=== PATIENT | male | born 1935 | race Two or more races ===

== ENCOUNTER 2017-04-01 11:15 | Inpatient (IN) | payer OTHER ==
[~2017-04-01] VITALS: Ht 185.4 cm; Wt 124.3 kg
[~2017-04-01 11:15] MED LIST: AMITRIPTYLINE H50 MG PO; GABAPENTIN600 MG PO; [UNRECOGNIZED DRUG - OTHER]
== END 2017-04-05 09:39 | disposition left against medical advice (07) | DRG 193 ==
LOC: ER 11:15 → MEDI 22:21 → SEC-K 22:21 → MEDI 04-02 11:26
PROC: 3E0F7GC Introduction of Other Therapeutic Substance into Respiratory Tract, Via Natural or Artificial Opening (ICD-10-PCS; principal; 2017-04-01)
PROC: 4A033R1 Measurement of Arterial Saturation, Peripheral, Percutaneous Approach (ICD-10-PCS; 2017-04-01)
PROC: BB24ZZZ Computerized Tomography (CT Scan) of Bilateral Lungs (ICD-10-PCS; 2017-04-01)
PROC: B030ZZZ Magnetic Resonance Imaging (MRI) of Brain (ICD-10-PCS; 2017-04-01)
PROC: BW28ZZZ Computerized Tomography (CT Scan) of Head (ICD-10-PCS; 2017-04-01)
PROC: B54DZZZ Ultrasonography of Bilateral Lower Extremity Veins (ICD-10-PCS; 2017-04-02)
DX: J18.8 Other pneumonia, unspecified organism (principal); G93.49 Other encephalopathy; F33.2 Major depressive disorder, recurrent severe without psychotic features; B37.0 Candidal stomatitis; B37.49 Other urogenital candidiasis; R09.02 Hypoxemia; F10.20 Alcohol dependence, uncomplicated
CPT/HCPCS: 70544

== ENCOUNTER 2017-04-20 14:03 | Outpatient (CLI) | payer OTHER | END 2017-04-20 14:09 | disposition home or self-care (01) | LOC: RAD 14:03 | DX: J10.08 Influenza due to other identified influenza virus with other specified pneumonia (principal) ==

== ENCOUNTER 2017-05-19 16:06 | Outpatient (CLI) | payer OTHER | END 2017-05-19 16:12 | disposition home or self-care (01) | LOC: RAD 16:06 | DX: M54.5 Low back pain (principal) ==

== ENCOUNTER 2018-05-25 16:04 | Outpatient (CLI) | payer OTHER | END 2018-05-25 16:29 | disposition home or self-care (01) | LOC: RAD 16:04 | DX: R06.02 Shortness of breath (principal) ==

== ENCOUNTER 2019-10-25 08:59 | Inpatient (IN) | payer OTHER ==
[~2019-10-25] VITALS: Ht 182.9 cm; Wt 105.2 kg
[2019-10-25] MEDS ORDERED: TOPROL XL50 M1 PO (09:32)
[2019-10-25] MEDS ORDERED: RESTORIL30 M1 PO (09:32)
[2019-10-25] MEDS ORDERED: LEVOTHYROXINE25 MCG PO (09:32)
[2019-10-25] MEDS ORDERED: AMITRIPTYLINE H75 MG PO (09:33)
--- NOTE | 2019-10-25 09:33 | NUR ---
SE RECIBE PTE MASCULINO SOMNOLIENTO EN COMPANIA DE FAMILIAR Y PARAMEDICOS, LOS MISMOS REFIEREN CAIDA EN LA MADRUGADA DE ANNA MARIE Y FIEBRE. SE OSBERVA PTE DIAFORETICO. SE GABRIELA S/V Y SE REALIZA EKG; SE PRESENTA LEO A , LA CUAL REFIERE UBICAR PTE EN AREA DE CRITICO. SE OBSERVA ABRASION EN AREA DEL CODO L+.
--- NOTE | 2019-10-25 10:00 | NUR ---
PATIENT IS RECIEVED IN CRITICAL CARE AREA ALERTA AND ORIENTED X3. PATIENT IS SWEATY AND BREATHING HEAVILY. PATIENT SAYS HE'S NOT IN PAIN. IV LINE IS PLACED IN PATIENT'S RIGHT HAND AND BLOOD IS DRAWN FOR LABS. PATIENT IS CONECTED TO TELEMTRY AND OXIMETRY AND IS PLACED URIGHT FOR COMFORT. PATIENT IS DROWSY YET ALERT, AND SLEEPS THROUGH THE ENTIRE PROCESS.
--- NOTE | 2019-10-25 10:30 | NUR ---
IV FLUID 0.9% NACL IS PLACED ON PATIENT AT 75 ML/HR. PATIENT IS PLACED ON NASAL CANULA AND IS GIVEN A ICE PACK AND TYELNOL 1GM PO FOR HIS FEVER. PATIENT IS STILL SWEATING PROFUSELY AND DROWSY.
--- NOTE | 2019-10-25 11:00 | NUR ---
IVF IS RAISED TO FULL DRIP FOR ONLY 250 ML DUE TO DEHYDRATION. ANOTHER IV LINE IS PLACED ON PATIENT'S LEFT HAND AND IS LEFT WITH A SALINE LOCK. 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 PATIENT IS TAKEN BACK AND CONTINUES SLEEPING, ONLY WAKING UP WHEN CALLED BY NAME.
--- NOTE | 2019-10-25 13:55 | NUR ---
SECOND TROPININ LAB IS TAKEN FROM PATIENT'S RIGHT ARM AND SENT TO LABORATORY.
--- NOTE | 2019-10-25 15:59 | NUR ---
SE RECIBE PTE ALERTA Y ORIENTADO X3 EN CAMA CON BARANDAS ELEVADAS. SE RECIBE PTE CONECTADO A MONITOR CARDIACO Y OXIMETRIA. SE RECIBE PTE CANALIZADAO EN AMBAS BAYRON AREAS LIBRES DE EDESM Y DE ENROJECIMIENTO. SE RECIBE PTE CON .9NSS DRIP BAJANDO A 75ML/HR. SE LE NOTIFICA A LAS 15:45PM A DR.HERNANDEZ CODY S/V P150,B/P89/70,RR21,OYG548%. PTE EN ESPERA DE PROCESO DE ADMISION Y ORDENES DE ADMISION.
== END 2019-10-29 15:10 | disposition home or self-care (01) | DRG 195 ==
LOC: ER 08:59 → MEDJ 18:26 → SEC-K 18:26 → MEDJ 10-26 04:34 → SURH 10-28 19:21 → MEDJ 10-28 20:29
PROVIDERS: ADMIT Internal Medicine; ATTEND Internal Medicine
PROC: 4A12X4Z Monitoring of Cardiac Electrical Activity, External Approach (ICD-10-PCS; principal; 2019-10-26)
PROC: B24BZZZ Ultrasonography of Heart with Aorta (ICD-10-PCS; 2019-10-26)
PROC: BW28ZZZ Computerized Tomography (CT Scan) of Head (ICD-10-PCS; 2019-10-26)
PROC: 4A033R1 Measurement of Arterial Saturation, Peripheral, Percutaneous Approach (ICD-10-PCS; 2019-10-26)
PROC: 3E0F7SF Introduction of Other Gas into Respiratory Tract, Via Natural or Artificial Opening (ICD-10-PCS; 2019-10-26)
PROC: 8E0ZXY6 Isolation (ICD-10-PCS; 2019-10-26)
DX: J18.9 Pneumonia, unspecified organism (principal); I48.91 Unspecified atrial fibrillation; I10 Essential (primary) hypertension; I44.7 Left bundle-branch block, unspecified; E03.9 Hypothyroidism, unspecified; F10.10 Alcohol abuse, uncomplicated; Z03.818 Encounter for observation for suspected exposure to other biological agents ruled out; R09.02 Hypoxemia; F32.9 Major depressive disorder, single episode, unspecified; E11.65 Type 2 diabetes mellitus with hyperglycemia; S00.93XA Contusion of unspecified part of head, initial encounter; W18.30XA Fall on same level, unspecified, initial encounter; Y92.002 Bathroom of unspecified non-institutional (private) residence as the place of occurrence of the external cause

== ENCOUNTER 2019-11-18 11:19 | Outpatient (CLI) | payer OTHER ==
[~2019-11-18 11:19] MED LIST changes: +AMITRIPTYLINE H75 MG PO; +LEVOTHYROXINE25 MCG PO; +RESTORIL30 M1 PO; +TOPROL XL50 M1 PO
== END 2019-11-18 11:31 | disposition home or self-care (01) ==
LOC: MRI 11:19
PROVIDERS: ATTEND Psychiatry & Neurology Neurology
DX: F02.81 Dementia in other diseases classified elsewhere, unspecified severity, with behavioral disturbance (principal); G93.41 Metabolic encephalopathy
CPT/HCPCS: 70551

== ENCOUNTER 2020-11-30 11:33 | Emergency (ER) | payer OTHER ==
[~2020-11-30] VITALS: Ht 188 cm; Wt 96.2 kg
[2020-11-30] MEDS ORDERED: LORAZEPAM2 MG PO (12:02)
== END 2020-11-30 13:47 | disposition home or self-care (01) ==
LOC: ER 11:33
DX: S82.842A Displaced bimalleolar fracture of left lower leg, initial encounter for closed fracture (principal); W18.39XA Other fall on same level, initial encounter; Y93.89 Activity, other specified; Y92.098 Other place in other non-institutional residence as the place of occurrence of the external cause; Y99.8 Other external cause status

== ENCOUNTER 2020-12-03 19:00 | Inpatient (IN) | payer OTHER ==
[~2020-12-03] VITALS: Ht 177.8 cm; Wt 102.1 kg
[~2020-12-03 19:00] MED LIST changes: +LORAZEPAM2 MG PO
[2020-12-05] MEDS ORDERED: ELIQUIS2.5 MG PO (08:13)
[2020-12-05] MEDS ORDERED: DUI500 PO (08:13)
[2020-12-05] MEDS ORDERED: ULTRACET PO (08:13)
== END 2020-12-05 09:05 | disposition home or self-care (01) | DRG 493 ==
LOC: ER 19:00 → SURH 21:46
PROVIDERS: Orthopaedic Surgery; ADMIT Internal Medicine; ATTEND Internal Medicine
PROC: 0MQR0ZZ Repair Left Ankle Bursa and Ligament, Open Approach (ICD-10-PCS; 2020-12-04)
PROC: 3E0V0GB Introduction of Recombinant Bone Morphogenetic Protein into Bones, Open Approach (ICD-10-PCS; 2020-12-04)
PROC: 0QSH04Z Reposition Left Tibia with Internal Fixation Device, Open Approach (ICD-10-PCS; principal; 2020-12-04 13:15)
DX: S82.852A Displaced trimalleolar fracture of left lower leg, initial encounter for closed fracture (principal); I48.20 Chronic atrial fibrillation, unspecified; E03.8 Other specified hypothyroidism; I10 Essential (primary) hypertension; Z20.822 Contact with and (suspected) exposure to COVID-19; W18.39XA Other fall on same level, initial encounter; S93.422A Sprain of deltoid ligament of left ankle, initial encounter; E11.9 Type 2 diabetes mellitus without complications; Z79.84 Long term (current) use of oral hypoglycemic drugs

== ENCOUNTER 2020-12-10 15:18 | Emergency (ER) | payer OTHER ==
[~2020-12-10] VITALS: Ht 188 cm; Wt 99.8 kg
[~2020-12-10 15:18] MED LIST changes: +DUI500 PO; +ELIQUIS2.5 MG PO; +ULTRACET PO
== END 2020-12-10 19:36 | disposition home or self-care (01) ==
LOC: ER 15:18
DX: R41.0 Disorientation, unspecified (principal)

== ENCOUNTER → 2020-12-11 | Outpatient (CLI) | payer OTHER | END | disposition home or self-care (01) | LOC: MRI 10:15 | PROVIDERS: ATTEND General Practice | DX: G93.89 Other specified disorders of brain (principal); R41.89 Other symptoms and signs involving cognitive functions and awareness; G31.89 Other specified degenerative diseases of nervous system | CPT/HCPCS: 70551 ==

== ENCOUNTER 2021-01-17 14:30 | Outpatient (CLI) | payer OTHER | END 2021-01-17 14:45 | disposition home or self-care (01) | LOC: PPH VACUNA 14:30 | PROVIDERS: ATTEND Emergency Medicine Pediatric Emergency Medicine | DX: Z23 Encounter for immunization (principal) ==

== ENCOUNTER 2021-04-04 16:20 | Outpatient (CLI) | payer OTHER | END 2021-04-04 16:28 | disposition home or self-care (01) | LOC: RAD 16:20 | PROVIDERS: ATTEND Internal Medicine | DX: S91.102A Unspecified open wound of left great toe without damage to nail, initial encounter (principal) ==

== ENCOUNTER 2021-07-11 08:00 | Outpatient (CLI) | payer OTHER | END 2021-07-11 08:30 | disposition home or self-care (01) | LOC: PPH VACUNA 08:00 | PROVIDERS: ATTEND Emergency Medicine Pediatric Emergency Medicine | DX: Z23 Encounter for immunization (principal) ==

== ENCOUNTER 2021-12-05 13:00 | Outpatient (CLI) | payer OTHER | END 2021-12-05 13:10 | disposition home or self-care (01) | LOC: PPH VACUNA 13:00 | PROVIDERS: ATTEND Emergency Medicine Pediatric Emergency Medicine | DX: Z23 Encounter for immunization (principal) ==

== ENCOUNTER 2022-03-15 14:05 | Inpatient (IN) | payer OTHER ==
[~2022-03-15] VITALS: Ht 188 cm; Wt 127.0 kg
[2022-03-15] MEDS ORDERED: BENZONATATE150 MG PO (14:30)
[2022-03-15] MEDS ORDERED: CRESTOR20 MG PO (14:30)
[2022-03-15] MEDS ORDERED: LEXAPRO5 MG (14:31)
[2022-03-15] MEDS ORDERED: GABAPENTIN300 MG (14:31)
[2022-03-15] MEDS ORDERED: ATENOLOL50 MG PO (14:32)
--- NOTE | 2022-03-15 14:34 | NUR ---
PACIENTE ALERTA Y ORIENTADO X3, REFIERE TENER DIFICULTAD RESPIRATORIO. FAMILIAR REFIERE QUE TIENE TOS PRODUCTIVA QUE NO MEJPRA. SE MONITOREAN VS Y SE UBICA
--- NOTE | 2022-03-15 15:14 | NUR ---
PACIENTE ALERTA Y ORIENTADO EN PERSONA Y LUGAR. SE ORIENTA A PACIENTE SOBRE TX Y PROCEDIMIENTO A REALIZAR Y REFIRIO ENTENDER. SE CONECTA A MONITOR CARDIACO Y OXIMETRIA DE PULSO. SE COLOCA CANULA NASAL A 3 LITROS, PACIENTE SATURANDO OXIGENO MANUAL A 89%. BSE REALIZAN MUESTRAS DE LABORATORIO BAJO MEDIDAS ASEPTICAS. SE CANALIZA BAJO MEDIDAS ASEPTICAS EN BRAZO CARLYN Y MANO IZQUIERDA. SE ADMINISTRA MEDICAMENTO ORDENADO POR . LE REALIZAN PLACA DE PECHO ORDENADO POR . PENDIENTE ABG NOTIFICADOS A PERSONAL DE TERAPIA RESPIRATORIA POR MISS. RAE. Y PENDIENTE REALIZAR EKG.
--- NOTE | 2022-03-15 18:03 | NUR ---
3:00PM SE RECIBE PTE AELRTA Y ORIENTADO EN PERSONA EN CAMA CON BARANDAS ELEVADAS. PTE CONECTADO A MONITOR CARDIACO Y OXIMETRIA.PTE CON CANULA NASAL A 3L, EN POSICION SEMIFOWLER. SE RECIBE PTE CANALIAZADO EN MANO Y BRAZO IZQUIERDA ANGIO #[id number] AREA MARGY DE EDEMA Y DE ENROJECIMIENTO. 3:30OPM SE LE COLOCA V/M AL 50%, SE INSERTA PICKARD DE MANERA ESTERIL Y SE OBSERVAN 300ML DE ORINA COLOR AMARILLO INTENSO. SE LE REALIZA EKG NISH ORDEN MEDICA Y SE ADMINISTRAN MEDICAMENTOS NISH ORDEN MEDICA. 5:00PM PTE SE TORNA AGRESIVO, DESORIENTADADO Y CONFUNDIDO. SE RESTRINGE X4 Y SE ADMINISTRA ATIVAN 2MG IV PUSH STAT NISH ORDEN VERBAL DE .
== END 2022-03-18 22:22 | disposition expired | DRG 291 ==
LOC: ER 14:05 → MEDI 19:13
PROVIDERS: ADMIT Internal Medicine; ATTEND Internal Medicine
PROC: 5A09457 Assistance with Respiratory Ventilation, 24-96 Consecutive Hours, Continuous Positive Airway Pressure (ICD-10-PCS; principal; 2022-03-16)
PROC: B24BYZZ Ultrasonography of Heart with Aorta using Other Contrast (ICD-10-PCS; 2022-03-16)
PROC: 4A12X4Z Monitoring of Cardiac Electrical Activity, External Approach (ICD-10-PCS; 2022-03-16)
PROC: 02HV33Z Insertion of Infusion Device into Superior Vena Cava, Percutaneous Approach (ICD-10-PCS; 2022-03-18)
DX: I11.0 Hypertensive heart disease with heart failure (principal); I50.23 Acute on chronic systolic (congestive) heart failure; J96.01 Acute respiratory failure with hypoxia; J44.1 Chronic obstructive pulmonary disease with (acute) exacerbation; Z66 Do not resuscitate; I48.91 Unspecified atrial fibrillation; I46.9 Cardiac arrest, cause unspecified